=== PATIENT | male | born 2005 | race Two or more races ===

== ENCOUNTER 2025-07-26 16:47 | Emergency (ER) | payer SELFPAY ==
[2025-07-26 16:48] VITALS: BP 136/69; PULSE 72; RESP 18; TEMP 36.8; O2SAT 99
--- NOTE | 2025-07-26 16:55 | XR_ITS ---
Examination: Knee, left , 3 views Technique: Knee AP, lateral, oblique 3 views Date and time of exam: July 26, 2025 1708 hrs. Indications: Patient fell today with injury to the knee, knee pain. Findings: No acute fracture No dislocation No foreign body Impression: No acute fracture.
--- NOTE | 2025-07-26 16:55 | XR_ITS ---
EXAMINATION: Ankle, left 3 views . Technique: Ankle AP, oblique, lateral 3 views Date and time of exam: July 26, 2025, 1709 hrs. Indications: Patient fell today with injury to the ankle, ankle pain. Findings: Acute fracture distal fibular shaft. No significant offset. Posterior medial malleolar regions appear intact No ankle dislocation Impression: Acute fractures distal fibular shaft
--- NOTE | 2025-07-26 16:57 | PD.EDADULT ---
ED General RME/HPI General Chief complaint: Extremity Injury, Lower Stated complaint: LEFT ANKLE INJURY Time Seen by Provider: 07/26/25 16:55 Arrival date/time: 07/26/25 16:47 CC: Left ankle pain left knee pain HPI patient was at [facility], tripped and fell into the water felt a pop sensation in his ankle denies loss of consciousness chest pain headache shortness of breath blurred vision or hip pain. EMS reports stable vital signs and route. Patient given 100 of fentanyl is now resting comfortably. Related Data Previous Rx's ?Medication ?Instructions ?Recorded meloxicam 7.5 mg tablet 7.5 mg PO QDAY #14 tabs 07/26/25 Allergies Allergy/AdvReac Type Severity Reaction Status Date / Time No Known Allergies Allergy Verified 07/26/25 17:19 Review of Systems Review of Systems Narrative Review of Systems: GEN: No fever, no chills, no weight loss EYES: No discharge, no visual changes, no pain HEENT: No ear pain, no congestion, no sore throat PULM: No shortness of breath, no cough, no congestion CV: No chest pain, no dyspnea on exertion, no palpitations GI: No nausea, no vomiting, no diarrhea, no pain, no constipation : No frequency, no urgency, no dysuria MUSC/SKEL: + joint pain, no back pain SKIN: No rash PSYCH: No hallucinations, no depression HEME/LYMPH: No easy bleeding or bruising tendencies NEURO: No weakness, no headache ED Exam Narrative Physical exam: [General: Moderate discomfort but not in any acute distress Head normocephalic HEENT: Within acceptable limits Neck is supple nontender Chest equal chest rise nontender to palpation Respiratory: Clear to auscultation no wheezes crackles or rubs CV: Rate rhythm is regular no murmurs rubs or clicks Abdomen is soft nontender no masses positive bowel sounds all 4 quadrants Back: No CVA tenderness no spinous process tenderness from cervical spine thoracic and lumbar spine Skin: Intact no petechiae rash induration ulceration or crepitus Extremities: Left lower extremity decreased range of motion of the ankle secondary to pain decreased range of motion of the knee second JOSE pain there is significant ankle edema both medial and lower lateral malleolus. Cap refill in the digits less than 2 seconds is able to move the digits with pain in the ankle. Moving all other extremities against resistance cap refill less than 2 seconds neurosensory intact Neuro: Awake alert oriented x3 Glascow coma 15 no focal deficits] Course Quality Measures none Orders Category Date Time Status Crutches .NOW Care 07/26/25 17:32 Completed Splint / Immobilizer STAT Care 07/26/25 17:32 Completed XR ankle comp LT min 3V Stat Exams 07/26/25 16:55 Completed XR knee LT 3V Stat Exams 07/26/25 16:55 Completed oxyCODONE/APAP 5/325 [Percocet 5/325] Med 07/26/25 16:59 Discontinued 1 tab PO X1 ONE Vital Signs Vital signs: Vital Signs Temperature 98.2 F 07/26/25 16:48 Pulse Rate 72 07/26/25 16:48 Respiratory Rate 18 07/26/25 16:48 Blood Pressure 136/69 H 07/26/25 16:48 Pulse Oximetry (%) 99 07/26/25 16:48 Oxygen Delivery Method Room Air 07/26/25 16:48 Discharge Plan Plan Patient Disposition: HOME (Self Care) Patient condition on transfer: Stable Prescriptions/Referrals Prescriptions/Med Rec: New meloxicam 7.5 mg tablet 7.5 mg PO QDAY Qty: 14 0RF Referrals: Etienne Gilbert MD [Physician] - In 1 week Problem List Clinical Impression: Closed fibular fracture Patient/Caregiver Discharge Instructions Other Activity Instructions:: Use your crutches, follow-up with the bone doctor listed above or bone doctor of your choice in 7 to 10 days. Do not put weight on the foot. Education Materials: ED Fracture, Lower Extremity Print Language: Dominican Stand Alone Forms: Tamar Award Info., Work/School Release, Patient Portal Info Letter PA/SOCIAL SERVICES ASSISTANT Supervising Physician PA/SOCIAL SERVICES ASSISTANT Supervising Physician: Celso Ball ENP [facility] Clinical Information Provided by patient and EMS Medical [facility] Meds/Rx Considered, not Ordered None Labs/Rad/Tests considered, not Ordered None Chronic Illness/Social Conditions which may negatively complicate care or outcome(s)-explain: None or not applicable EKG EKG not done Medication Administration(s) Medication Administration History Discontinued Medications Oxycodone/Acetaminophen (Oxycodone/Apap 5/325 Tablet) 1 tab PO X1 ONE Stop: 07/26/25 17:00 Last Admin: 07/26/25 17:27 Dose: 1 tab Documented By: DO
[2025-07-26 17:05] VITALS: PULSE 72; RESP 18; O2SAT 99; BMI 25.7
--- NOTE | 2025-07-26 18:10 | PC.NURSE ---
Splint applied to left lower leg, pt. tolerated well, Aunt at bedside, Celso WOODS BOSS checked splint and approved. Instruct pt. to keep elevated and non weight bearing. Pt. states he understands.
[2025-07-26 18:40] VITALS: BP 121/70; PULSE 59; RESP 18; TEMP 36.6; O2SAT 99
== END 2025-07-26 18:40 | disposition home or self-care (01) ==
LOC: SERX 18:03
PROVIDERS: Emergency Provider Family Medicine
DX: S82.832A Other fracture of upper and lower end of left fibula, initial encounter for closed fracture (principal); W17.89XA Other fall from one level to another, initial encounter; Y92.828 Other wilderness area as the place of occurrence of the external cause
CPT/HCPCS: 29515; 73562; 73610; 99284; A9270